=== PATIENT | female | born 1970 | race Caucasian/White ===

== ENCOUNTER 2020-11-14 09:39 | Outpatient (REF) | payer BC, SELFPAY ==
--- NOTE | ~2020-11-14 | MM_ITS ---
EXAMINATION: MM SCREENING DIGITAL BREAST TOMOSYNTHESIS, BILATERAL CLINICAL INFORMATION: Screening. Asymptomatic. The lifetime risk of breast cancer based on the Tyrer-Cuzick Model is 17%. COMPARISON: Mammography: 11/09/2019, 11/01/2018, 12/25/2014 TECHNIQUE: Digital breast tomosynthesis is performed in both the craniocaudal and mediolateral oblique views along with computer-aided detection (CAD). Synthesized 2D images are generated from the tomosynthesis. FINDINGS: The breasts are heterogeneously dense, which may obscure small masses (ACR BI-RADS breast composition Category c). Parenchymal pattern borders on average fibroglandular. The left breast shows no interval mass or architectural abnormality. Neither breast shows abnormal calcifications. The skin contours are smooth. Parenchymal asymmetry mid lower inner right breast is stable from prior studies. There is asymmetric density posterior upper right breast on MLO view, 8 cm from nipple, possibly incompletely compressed glandular tissue. Patient will be recalled for additional imaging. MM/MM tomosynthesis screening BI IMPRESSION: 1. Right: Asymmetric density posterior upper right breast on MLO view, possibly incompletely compressed glandular tissue. 2. Left: No mammographic evidence of malignancy. ASSESSMENT: BI-RADS 0: Incomplete - Need Additional Imaging Evaluation RECOMMENDATION: 1. Additional views of the right breast (3-D spot MLO, 3-D exaggerated CC). 2. Targeted ultrasound if warranted after review of the additional views. 3. Radiology department staff will contact the patient for additional imaging. This patient's information was entered into a reminder system with a target due date for their next mammogram.
== END 2020-11-14 09:40 | disposition home or self-care (01) ==
LOC: HO.MAMMO 09:39
PROVIDERS: Absent Provider Obstetrics & Gynecology; Visit Provider Family Medicine
DX: Z12.31 Encounter for screening mammogram for malignant neoplasm of breast (principal)
CPT/HCPCS: 77063; 77067

== ENCOUNTER 2020-12-14 14:54 | Outpatient (REF) | payer BC, SELFPAY ==
--- NOTE | ~2020-12-14 | MM_ITS ---
EXAMINATION: MM DIAGNOSTIC DIGITAL BREAST TOMOSYNTHESIS, RIGHT CLINICAL INFORMATION: Recall from screening for asymmetric density posterior right breast on MLO view overlying axillary fold, possibly incompletely compressed glandular tissue. TC score 17%. COMPARISON: Mammography: 11/14/2020, 11/09/2019, 11/01/2018 TECHNIQUE: Digital breast tomosynthesis is performed. 2D images are generated from the tomosynthesis. The following views are obtained: Spot 3-D MLO x2, 3-D exaggerated CC. FINDINGS: The breasts are heterogeneously dense, which may obscure small masses (ACR BI-RADS breast composition Category c). Additional views show no persistent asymmetric density. There is no developing density or interval mass or architectural abnormality in the posterior breast. Results are discussed with the patient at time of visit. MM/MM tomosynthesis added views R IMPRESSION: Additional views show no persistent asymmetric density in the area of interest. ASSESSMENT: BI-RADS 1: Negative RECOMMENDATION: Routine annual mammography screening. This patient's information was entered into a reminder system with a target due date for their next mammogram.
== END 2020-12-14 14:55 | disposition home or self-care (01) ==
LOC: HO.MAMMO 14:54
PROVIDERS: Visit Provider Family Medicine
DX: R92.2 Inconclusive mammogram (principal)
CPT/HCPCS: 77061; 77065

== ENCOUNTER 2022-09-23 15:35 | Outpatient (REF) | payer BC, SELFPAY ==
--- NOTE | ~2022-09-23 | MM_ITS ---
EXAMINATION: MM SCREENING DIGITAL BREAST TOMOSYNTHESIS, BILATERAL CLINICAL INFORMATION: Screening. Asymptomatic. The lifetime risk of breast cancer based on the Tyrer-Cuzick Model is 15%. COMPARISON: Mammography: 12/14/2020, 11/14/2020, 11/09/2019, 11/01/2018 TECHNIQUE: Digital breast tomosynthesis is performed in both the craniocaudal and mediolateral oblique views along with computer-aided detection (CAD). Synthesized 2D images are generated from the tomosynthesis. FINDINGS: The breasts are heterogeneously dense, which may obscure small masses (ACR BI-RADS breast composition Category c). Parenchymal pattern is similar to prior studies and there is no developing density or interval significant mass or architectural abnormality or abnormal calcifications. There is chronic smooth oval mass mid lower inner right breast similar to prior studies measuring approximately 1.5 x 2.0 cm. The axilla and skin contours are unremarkable. MM/MM tomosynthesis screening BI IMPRESSION: No significant changes from prior exams. ASSESSMENT: BI-RADS 2: Benign RECOMMENDATION: Routine annual mammography screening. This patient's information was entered into a reminder system with a target due date for their next mammogram.
== END 2022-09-23 15:36 | disposition home or self-care (01) ==
LOC: HO.MAMMO 15:35
PROVIDERS: PCP Student in an Organized Health Care Education/Training Program; Visit Provider Family Medicine
DX: Z12.31 Encounter for screening mammogram for malignant neoplasm of breast (principal)
CPT/HCPCS: 77063; 77067

== ENCOUNTER 2023-09-25 15:38 | Outpatient (REF) | payer BC, SELFPAY | END 2023-09-25 15:39 | disposition home or self-care (01) | LOC: HO.MAMMO 15:38 | PROVIDERS: PCP Student in an Organized Health Care Education/Training Program; Visit Provider Student in an Organized Health Care Education/Training Program | DX: Z12.31 Encounter for screening mammogram for malignant neoplasm of breast (principal) | CPT/HCPCS: 77063; 77067 ==

== ENCOUNTER → 2023-09-25 15:45 | Outpatient (BNV) | payer BC, SELFPAY | PROVIDERS: PCP Student in an Organized Health Care Education/Training Program; Visit Provider Radiology Diagnostic Radiology | DX: Z12.31 Encounter for screening mammogram for malignant neoplasm of breast (principal) | CPT/HCPCS: 77063; 77067 ==

== ENCOUNTER 2024-09-30 09:12 | Outpatient (REF) | payer BC, SELFPAY | END 2024-09-30 09:13 | disposition home or self-care (01) | LOC: HO.MAMMO 09:12 | PROVIDERS: PCP Nurse Practitioner Family; Visit Provider Nurse Practitioner Family | DX: Z12.31 Encounter for screening mammogram for malignant neoplasm of breast (principal) | CPT/HCPCS: 77063; 77067 ==

== ENCOUNTER → 2024-09-30 09:15 | Outpatient (BNV) | payer BC, SELFPAY | PROVIDERS: PCP Nurse Practitioner Family; Visit Provider Internal Medicine | DX: Z12.31 Encounter for screening mammogram for malignant neoplasm of breast (principal) | CPT/HCPCS: 77063; 77067 ==